=== PATIENT | female | born 1960 | race Caucasian/White ===

== ENCOUNTER 2017-02-05 20:04 | Emergency (ER) | payer BC ==
[~2017-02-05] VITALS: Ht 162.6 cm; Wt 61.2 kg
[~2017-02-05 20:04] MED LIST: CIPRO PO; DICYCLOMINE HCL20 MG PO; FLEXERIL PO; IBUPROFEN PO; IBUPROFEN800 MG PO; LISINOPRIL PO; NORCO 5/325 TAB1 TAB PO; PHENERGAN PO; PHENTERMINE PO; PRILOSEC PO; PRISTIQ50 MG PO; VICODIN 5/500 T1 TAB PO; ZESTORETIC 20/21 TAB PO
[2017-02-05] MEDS ORDERED: ALPRAZOLAM PO (20:28)
== END 2017-02-05 22:57 | disposition home or self-care (01) ==
LOC: SED 20:04
DX: R51 Headache (principal); R11.0 Nausea; H53.8 Other visual disturbances; I10 Essential (primary) hypertension; F17.210 Nicotine dependence, cigarettes, uncomplicated; Z90.710 Acquired absence of both cervix and uterus; Z98.890 Other specified postprocedural states; Z79.899 Other long term (current) drug therapy
CPT/HCPCS: 96361; 96374; 96375; 99283; J0780; J1200; J1885; J2405; J2765